=== PATIENT | female | born 1970 | race Two or more races ===

== ENCOUNTER 2020-08-21 09:40 | Outpatient (CLI) | payer OTHER | END 2020-08-21 12:52 | disposition home or self-care (01) | LOC: MAMO-SONO 09:40 | PROVIDERS: ATTEND Obstetrics & Gynecology Maternal & Fetal Medicine | DX: R10.2 Pelvic and perineal pain (principal); R22.1 Localized swelling, mass and lump, neck; N63 Unspecified lump in breast; Z12.31 Encounter for screening mammogram for malignant neoplasm of breast; N60.11 Diffuse cystic mastopathy of right breast ==